=== PATIENT | male | born 1940 | race Caucasian/White ===

== ENCOUNTER 2018-11-11 05:32 | Day surgery (SDC) | payer OTHER ==
[~2018-11-11] VITALS: Ht 182.9 cm; Wt 81.6 kg
[~2018-11-11 05:32] MED LIST: ASPIR 8181 MG PO; CARVEDILOL3.125 MG PO; CYMBALTA30 MG PO; LANTUS SOL100 UNIT/1 SUBQ; LIORESAL 10 MG10 MG PO; LIPITOR 20 MG T20 M1 PO; LISINOPRIL5 MG PO; METFORMIN HCL1000 MG PO; MOBIC15 MG PO; MULTIVITAMINS1 EAC4 PO; NEURONTIN 300300 M1 PO; NOVOLOG FL100 UNIT/M SUBQ; OMEGA 3 FISH O1 EACH PO; PLAVIX 75 MG TA75 M1 PO; PRIMIDONE50 MG PO; TRAMADOL 50 MG50 MG PO
--- NOTE | 2018-11-15 05:48 | O ---
[facility] [place] [address] OPERATIVE REPORT Name: MODESTA ALEXIS Room #: DEP [facility].#: [id number] Admission: 11/11/18 Attend Phys: Checo Bustamante MD Discharge: 11/11/18 Date of : 38 Report #: [id number] THIS REPORT FOR: //name// CC: Dr. Ford Mat Mir Jr. DO Checo Bustamante DATE OF SERVICE: 11/11/2018 PREOPERATIVE DIAGNOSIS: Basal cell carcinoma of left lower lid with left lower lid ectropion and lid retraction. POSTOPERATIVE DIAGNOSIS: Basal cell carcinoma of left lower lid with left lower lid ectropion and lid retraction. PROCEDURE: Excision of basal cell carcinoma of left lower lid with frozen section, control of margins and myocutaneous flap repair of defect, left lower lid ectropion repair by myocutaneous advancement flap. SURGEON: Checo Bustamante M.D. OPTICIAN APPRENTICE DISPENSING: None. ANESTHESIA: MAC. COMPLICATIONS: None. INDICATIONS FOR SURGERY: This pleasant 78-year-old gentleman has a biopsy proven basal cell carcinoma in his left lower lid. 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 He presents today for excision of the basal cell carcinoma with frozen section control of the margins and subsequent reconstruction of that defect along with correction of his independent left lower lid ectropion. Informed consent was obtained to include but not limited to the potential risk for loss of vision, bleeding, infection, failure to improve the problem and the potential need for further surgery or treatment. DESCRIPTION OF PROCEDURE: The patient was taken to the operating room where 2% Xylocaine with epinephrine mixed with equal parts of 0.75% Marcaine with Wydase was administered transcutaneously to the left lower lid, left lateral canthus, left medial canthus, the left cheek and the left infratemporal fossa. The patient was subsequently prepped and draped in the usual sterile fashion. A fine tip skin marking pen was then utilized to outline the lesion including [address] [address] OPERATIVE REPORT Name: MODESTA ALEXIS Room #: DEP [facility] M.Christina.#: [id number] Admission: 11/11/18 Attend Phys: Checo Bustamante MD Discharge: 11/11/18 Date of : 38 Report #: [id number] 1-2 mm of normal appearing tissue. The incisions were then made perpendicularly across the eyelid margin and drawn down to a point in the area anterior to the inferior orbital rim. That specimen was then oriented on a drawing for the waiting pathologist. She snap froze that tissue and found that the tumor had been completely extirpated and the margins were clear. Attention was then first paid to correction of the lower lid ectropion. A transconjunctival incision was made below the inferior border of the tarsal plate, drawn down into the more medially located premalar tissues. The lower lid and cheek tissues were then elevated and the lid margin inverted with multiple interrupted 5-0 Vicryl sutures. The closure of the incision and the conjunctiva was left coapted. All of the sutures were buried. A myocutaneous flap was then developed laterally to correct the defect left from the basal cell carcinoma excision. Hemostasis was then re-achieved. The flap was then advanced and secured with multiple interrupted 5-0 Vicryl sutures deep. The tarsal plate was reapproximated with interrupted 5-0 Vicryl sutures. The eyelid margin was reapproximated with interrupted 7-0 Vicryl sutures. The subcutaneous structures and the skin were then closed with interrupted Vicryl sutures deep and then 6-0 plain gut sutures more superficially. The wounds were then cleaned and dressed with erythromycin ophthalmic ointment and the patient subsequently transported to the recovery area having tolerated the procedures well with no anesthetic or operative complications being noted. <ELECTRONICALLY SIGNED> By: Checo Bustamante MD 11/15/18 0548 [id number] Checo Bustamante MD /nt
--- NOTE | 2018-11-15 12:06 | PATH ---
[facility] [address] [place] [address] PATHOLOGY RPT PROCEDURE Name: VANESAMODESTA Room #: DEP [facility] M.R.#: [id number] Admission: 11/11/18 Date of : 38 Discharge: 11/11/18 Report #: [id number] Path Case #: [id number] [facility] Accession Number: [id number] . 01 Material submitted: . BASAL CELL CARCINOMA LEFT LOWER LID-FS . 01 Clinical history: . None provided . 02 Diagnosis: Skin, basal cell carcinoma left lower lid, excision: - MINUTE FOCUS OF RESIDUAL BASAL CELL CARCINOMA PRESENT. - Margins of resection widely free of malignancy. (IUV:jose manuel; 11/12/2018) QMS/11/12/2018 . 02 Electronically signed: . Sally Blount MD, Pathologist NPI- [id number] . 03 Gross description: . Specimen is received fresh from the OR labeled with the patient's name, and "BCCA left lower lid", consists of an inverted triangular specimen oriented as superior, lateral, inferior and medial, and these are assigned 12:00, 3:00, 6:00 and 9:00 respectively. The specimen measures 1 cm in length and 0.8 cm at its base which is the superior margin. The 12-3-6:00 is inked black, the 6-9:00 is inked blue, and 9-12:00 is inked green. The base of the specimen that is the superior border is inked orange. At this point, specimen is serially sectioned and entirely submitted for frozen section as FSA1, subsequently submitted for permanent sections as A1. (IUV:mechanical meter tester; 11/11/2018) . . FROZEN SECTION DIAGNOSIS (Sally Blount MD) . FSA1. Left lower lid, excision: - Negative for invasive carcinoma at margins. . These findings are discussed with Dr. Checo Bustamante and a written report is placed in the patient's chart. . (IUV:mechanical meter tester; 11/11/2018) . Frozen section performed at [facility], [address] [place] [address] , [place] [address]. [facility] [address] [place] [address] PATHOLOGY RPT PROCEDURE Name: MODESTA ALEXIS Room #: DEP [facility] Cesia#: [id number] Admission: 11/11/18 Date of : 38 Discharge: 11/11/18 Report #: [id number] Path Case #: [id number] /MBR . 02 Pathologist provided ICD-10: C44.1192 . 02 CPT . 817083, 287243 Specimen Comment: A courtesy copy of this report has been sent to Specimen Comment: [phone], . Specimen Comment: Report sent to and Specimen Comment: A duplicate report has been generated due to demographic updates. Performed at: [address] [place] [id number] MD David Lai MD Phone: [phone] Performed at: [address] [id number] MD Sally Blount MD Phone: [phone] Performed at: [address] [facility], [place], [place] [id number] MD David Lai MD Phone: [phone]
== END 2018-11-11 12:15 | disposition home or self-care (01) ==
LOC: TBA 05:32 → OR 05:32
DX: C44.1192 Basal cell carcinoma of skin of left lower eyelid, including canthus (principal); H02.105 Unspecified ectropion of left lower eyelid; H02.535 Eyelid retraction left lower eyelid; F32.9 Major depressive disorder, single episode, unspecified; G47.30 Sleep apnea, unspecified; G25.0 Essential tremor; I20.9 Angina pectoris, unspecified; I10 Essential (primary) hypertension; E78.5 Hyperlipidemia, unspecified; E11.9 Type 2 diabetes mellitus without complications; Z91.041 Radiographic dye allergy status; Z79.82 Long term (current) use of aspirin; Z79.899 Other long term (current) drug therapy; Z79.4 Long term (current) use of insulin; Z79.84 Long term (current) use of oral hypoglycemic drugs; Z87.891 Personal history of nicotine dependence; Z95.5 Presence of coronary angioplasty implant and graft; Z90.49 Acquired absence of other specified parts of digestive tract; Z98.890 Other specified postprocedural states
CPT/HCPCS: 50010; 50101; 50386; 50398; 51636; 56527; 56528; 56531; 62110; 62850; 70005